=== PATIENT | female | born 1990 | race Caucasian/White ===

== ENCOUNTER 2019-08-06 04:29 | Inpatient (IN) | payer BC ==
[2019-08-06] MEDS ORDERED: Sodium Chloride 0.9% 2.5 ML Syringe FLUSH PRN (05:09)
[2019-08-06] MEDS ORDERED: Butorphanol 1 MG/ML SDV IVPUSH PRN (05:09)
[2019-08-06] MEDS ORDERED: Sodium Chloride 0.9% 10 ML SDV IV PRN (05:09)
[2019-08-06] MEDS ORDERED: Water For Irrigation,Sterile 1,000 ML Container IRR PRN (05:09)
[2019-08-06] MEDS ORDERED: Nalbuphine 10 MG/1 ML Vial IVPUSH PRN (05:09)
[2019-08-06] MEDS ORDERED: Lidocaine 1% 50 ML MDV INJECT PRN (05:09)
[2019-08-06] MEDS ORDERED: Misoprostol 200 MCG Tab PO PRN (05:09)
[2019-08-06] MEDS ORDERED: Sodium Chloride 0.9% 10 ML Syringe FLUSH PRN (05:09)
[2019-08-06] MEDS ORDERED: Tranexamic Acid 1,000 MG in Sodium Chloride 0.9% 100 ML IV PRN (05:09)
[2019-08-06] MEDS ORDERED: Methylergonovine 0.2 MG/1 ML Amp IM PRN (05:09)
[2019-08-06] MEDS ORDERED: Ondansetron 4 MG/2 ML SDV IVPUSH PRN ×2 (05:09→10:26)
[2019-08-06] MEDS ORDERED: Carboprost Tromethamine 250 MCG/1 ML Amp IM PRN (05:09)
[2019-08-06] MEDS ORDERED: Misoprostol 25 MCG (1/4 of 100 MCG) Tab VAG PRN ×2 (05:12)
[2019-08-06] MEDS ORDERED: Terbutaline 1 MG/ML SDV SUBCUT PRN (05:12)
[2019-08-06] MEDS ORDERED: Oxytocin/0.9 % Sodium Chloride 30 UNIT/500 ML BAG IV SCH (05:15)
[2019-08-06] MEDS ORDERED: Lactated Ringers 1,000 ML IV SCH ×2 (05:15→10:30)
[2019-08-06 06:12] LABS: BLOOD UREA NITROGEN,BUN 13 mg/dL (7.0-18.0); CARBON DIOXIDE,CO2 21.2 mmol/L (21.0-32.0); CHLORIDE,CL 103 mmol/L (98-107); GLUCOSE RANDOM 90 mg/dL (74-106); POTASSIUM,K 4.1 mmol/L (3.5-5.1); SODIUM,NA 138 mmol/L (136-145)
[2019-08-06] MEDS ORDERED: fentaNYL 250 MCG/5 ML SDV ONE (08:59)
[2019-08-06] MEDS ORDERED: Propofol 200 MG/20 ML SDV ONE (09:01)
[2019-08-06] MEDS ORDERED: Oxytocin 10 Units/1 ML SDV ONE (09:02)
[2019-08-06] MEDS ORDERED: Phenylephrine/Normal Saline 100 MCG/ML 10 ML Syringe ONE (09:02)
--- NOTE | 2019-08-06 09:06 | PCM.PREANE ---
Preanesthetic Assessment - Anesthesia/Transfusion/Family Hx Anesthesia History: Prior Anesthesia Without Reaction Family History of Anesthesia Reaction: No Transfusion History: No Prior Transfusion(s) Type of Transfusion Reactions: Reports: Unknown - Review of Systems General: No Symptoms Pulmonary: No Symptoms Cardiovascular: No Symptoms Gastrointestinal: No Symptoms Neurological: No Symptoms Other: Reports: None - Physical Assessment NPO Status Date: 08/06/19 NPO Status Time: 06:30 ([facility]) Height: 5 ft 7 in Weight: 92.986 kg ASA Class: 2E Mental Status: Alert & Oriented x3 Airway Class: Mallampati = 2 Dentition: Reports: Normal Dentition Thyro-Mental Finger Breadths: 3 Mouth Opening Finger Breadths: 3 ROM/Head Extension: Full Lungs: Clear to Auscultation, Normal Respiratory Effort Cardiovascular: Regular Rate, Regular Rhythm - Lab Values: Laboratory Last Values WBC 10.11 K/uL (4.0-11.0) 08/06/19 05:43 RBC 4.37 M/uL (4.30-5.90) 08/06/19 05:43 Hgb 12.9 g/dL (12.0-16.0) 08/06/19 05:43 Hct 39.7 % (36.0-46.0) 08/06/19 05:43 MCV 90.8 fL (80.0-98.0) 08/06/19 05:43 MCH 29.5 pg (27.0-32.0) 08/06/19 05:43 MCHC 32.5 g/dL (31.0-37.0) 08/06/19 05:43 RDW Std Deviation 43.4 fl (28.0-62.0) 08/06/19 05:43 RDW Coeff of Jessica 13 % (11.0-15.0) 08/06/19 05:43 Plt Count 201 K/uL (150-400) 08/06/19 05:43 MPV 11.60 fL (7.40-12.00) 08/06/19 05:43 Nucleated RBC % 0.0 /100WBC 08/06/19 05:43 Nucleated RBCs # 0 K/uL 08/06/19 05:43 Sodium 138 mmol/L (136-145) 08/06/19 05:43 Potassium 4.1 mmol/L (3.5-5.1) 08/06/19 05:43 Chloride 103 mmol/L (98-107) 08/06/19 05:43 Carbon Dioxide 21.2 mmol/L (21.0-32.0) 08/06/19 05:43 BUN 13 mg/dL (7.0-18.0) 08/06/19 05:43 Creatinine 0.8 mg/dL (0.6-1.0) 08/06/19 05:43 Est Cr Clr Drug Dosing 103.63 mL/min 08/06/19 05:43 Estimated GFR (MDRD) > 60.0 ml/min 08/06/19 05:43 Glucose 90 mg/dL (74-106) 08/06/19 05:43 Calcium 8.7 mg/dL (8.5-10.1) 08/06/19 05:43 Total Bilirubin 0.2 mg/dL (0.2-1.0) 08/06/19 05:43 AST 24 IU/L (15-37) 08/06/19 05:43 ALT 20 IU/L (14-63) 08/06/19 05:43 Alkaline Phosphatase 134 U/L (46-116) H 08/06/19 05:43 Total Protein 7.0 g/dL (6.4-8.2) 08/06/19 05:43 Albumin 2.4 g/dL (3.4-5.0) L 08/06/19 05:43 Globulin 4.6 g/dL (2.6-4.0) H 08/06/19 05:43 Albumin/Globulin Ratio 0.5 (0.9-1.6) L 08/06/19 05:43 Membrane Rupture POSITIVE 08/06/19 04:45 Blood Type A NEGATIVE 08/06/19 05:43 Antibody Screen NEGATIVE 08/06/19 05:43 - Allergies Allergies/Adverse Reactions: Allergies Allergy/AdvReac Type Severity Reaction Status Date / Time Penicillins Allergy Rash Verified 08/06/19 04:57 - Acknowledgements Anesthesia Type Planned: General Anesthesia Pt an Appropriate Candidate for the Planned Anesthesia: Yes Alternatives and Risks of Anesthesia Discussed w Pt/Guardian: Yes Pt/Guardian Understands and Agrees with Anesthesia Plan: Yes PreAnesthesia Questionnaire HEENT History: Reports: None Cardiovascular History: Reports: None Respiratory History: Reports: None Gastrointestinal History: Reports: GERD Genitourinary History: Reports: None [employer] History: Reports: : 1 (36w6d) Para: 0 LMP (Approximate): (.) Musculoskeletal History: Reports: None Neurological History: Reports: None Psychiatric History: Reports: None Endocrine/Metabolic History: Reports: Obesity/BMI 30+ Hematologic History: Reports: None Immunologic History: Reports: None Oncologic (Cancer) History: Reports: None Dermatologic History: Reports: None - Infectious Disease History Infectious Disease History: Reports: Chicken Pox - Past Surgical History Head Surgeries/Procedures: Reports: None HEENT Surgical History: Reports: Other (See Below) Other HEENT Surgeries/Procedures: Nasal septum surgery. [place] tooth extraction Cardiovascular Surgical History: Reports: None Respiratory Surgical History: Reports: None GI Surgical History: Reports: None Female Surgical History: Reports: None Endocrine Surgical History: Reports: None Neurological Surgical History: Reports: None Musculoskeletal Surgical History: Reports: Other (See Below) Other Musculoskeletal Surgeries/Procedures:: 2 ACL knees surgery Oncologic Surgical History: Reports: None Dermatological Surgical History: Reports: None - SUBSTANCE USE Smoking Status *Q: Never Smoker Second Hand Smoke Exposure: No Recreational Drug Use History: No - HOME MEDS Home Medications: Home Meds PNV #116/Iron Fumarate/FA/DHA [Expecta Combo Pack] 08/06/19 [History] - CURRENT (IN HOUSE) MEDS Current Meds: Current Medications Butorphanol Tartrate (Stadol) 1 mg IVPUSH Q1H PRN PRN Reason: Pain Carboprost Tromethamine (Hemabate Ds) 250 mcg IM ASDIRECTED PRN PRN Reason: Post Hemorrhage Tranexamic Acid 1,000 mg/ (Sodium Chloride) 110 mls @ 660 mls/hr IV ONETIME PRN PRN Reason: Bleeding Lactated Ringer's (Ringers, Lactated) 1,000 mls @ 150 mls/hr IV ASDIRECTED LISA Oxytocin/Sodium Chloride (Oxytocin 30 Unit/500 Ml-Ns) 30 unit in 500 mls @ 999 mls/hr IV TITRATE LISA Lidocaine HCl (Xylocaine 1%) 50 ml INJECT ONETIME PRN PRN Reason: Laceration repair Methylergonovine Maleate (Methergine) 0.2 mg IM ASDIRECTED PRN PRN Reason: Post Hemorrhage Misoprostol (Cytotec) 200 mcg PO ONETIME PRN PRN Reason: Post Hemorrhage Misoprostol (Cytotec) 25 mcg VAG ONETIME PRN PRN Reason: Cervical Ripening Last Admin: 08/06/19 06:57 Dose: 25 mcg Misoprostol (Cytotec) 25 mcg VAG Q4H PRN PRN Reason: Cervical Ripening Nalbuphine HCl (Nubain) 10 mg IVPUSH Q1H PRN PRN Reason: Pain (severe 7-10) Ondansetron HCl (Zofran) 4 mg IVPUSH Q6H PRN PRN Reason: Nausea/Vomiting Sodium Chloride (Saline Flush) 10 ml FLUSH ASDIRECTED PRN PRN Reason: Keep Vein Open Sodium Chloride (Saline Flush) 2.5 ml FLUSH ASDIRECTED PRN PRN Reason: Keep Vein Open Sodium Chloride (Normal Saline) 10 ml IV ASDIRECTED PRN PRN Reason: IV Use Sterile Water (Sterile Water For Irrigation) 1,000 ml IRR ASDIRECTED PRN PRN Reason: delivery Terbutaline Sulfate (Brethine) 0.25 mg SUBCUT ASDIRECTED PRN PRN Reason: Tacysystole Last Admin: 08/06/19 08:44 Dose: 0.25 mg Discontinued Medications Fentanyl (Sublimaze) Confirm Administered Dose 250 mcg .ROUTE .STK-MED ONE Stop: 08/06/19 09:00
[2019-08-06] MEDS ORDERED: fentaNYL 100 MCG/2 ML SDV ONE (09:12)
[2019-08-06] MEDS ORDERED: HYDROmorphone 2 MG/ML Syringe ONE (09:36)
[2019-08-06] MEDS ORDERED: Morphine 2 MG/ML Syringe IVPUSH PRN (09:39)
[2019-08-06] MEDS ORDERED: Acetaminophen/oxyCODONE 325-5 MG Tab PO PRN ×2 (09:39→10:26)
[2019-08-06] MEDS ORDERED: 50% Dextrose in Water 50 ML Syringe IVPUSH PRN (09:46)
[2019-08-06] MEDS ORDERED: fentaNYL 100 MCG/2 ML SDV IVPUSH PRN (09:46)
[2019-08-06] MEDS ORDERED: Albuterol 0.083% 2.5 MG/3 ML Neb Soln NEB PRN (09:46)
[2019-08-06] MEDS ORDERED: EPINEPHrine 1:10,000 1 MG/10 ML Syringe IVPUSH PRN (09:46)
[2019-08-06] MEDS ORDERED: Naloxone 0.4 MG/ML Syringe IVPUSH PRN (09:46)
[2019-08-06] MEDS ORDERED: Atropine 0.1 MG/ML 10 ML Syringe IVPUSH PRN ×2 (09:46)
[2019-08-06] MEDS ORDERED: Bisacodyl 10 MG Supp RECTAL PRN (10:26)
[2019-08-06] MEDS ORDERED: Lanolin 100% Cream 7 GM Tube TOP PRN (10:26)
[2019-08-06] MEDS ORDERED: diphenhydrAMINE 50 MG/ML SDV IVPUSH PRN (10:26)
[2019-08-06] MEDS ORDERED: Morphine 10 MG/ML Syringe IVPUSH PRN (10:31)
--- NOTE | 2019-08-06 10:32 | PCM.POSTAN ---
POST ANESTHESIA ASSESSMENT - MENTAL STATUS Mental Status: Alert, Oriented - VITAL SIGNS Vital Signs: Last Vital Signs Temp 98.6 F 08/06/19 10:07 Pulse 85 08/06/19 10:27 Resp 11 L 08/06/19 10:27 BP 132/74 08/06/19 10:27 Pulse Ox 96 08/06/19 10:27 - RESPIRATORY Respiratory Status: Respiratory Rate WNL, Airway Patent, O2 Saturation Stable - CARDIOVASCULAR CV Status: Pulse Rate WNL, Blood Pressure Stable - GASTROINTESTINAL GI Status: No Symptoms - POST OP HYDRATION Hydration Status: Adequate & Stable
--- NOTE | 2019-08-06 10:33 | CR ---
INDICATION: . Intraoperative comet x-ray. COMPARISON: None. TECHNIQUE: Single portable supine view of the abdomen. FINDINGS: No unexpected radiopaque foreign object. Calcified phleboliths in the pelvis. Nonobstructive bowel gas pattern. Imaged osseous structures are unremarkable. IMPRESSION: No unexpected radiopaque foreign object. Dictated by Arnulfo Rivera MD @ Aug 06 2019 10:31AM Signed by Dr. Arnulfo Rivera @ Aug 06 2019 10:32AM
--- NOTE | 2019-08-06 12:45 | OR ---
SURGEON: Aries Bucio MD DATE OF PROCEDURE: 08/06/2019 INDICATION: The patient is a 28-year-old G1, P0, presenting in spontaneous labor with rupture of membrane at 36 weeks and 6 days. She progressed quickly to fully dilated, baby was found to be in complete breech presentation. heart rate started to have recurrent variable decelerations to the 90s and did not recover with repositioning. At this time, decision was made for primary section due to intolerance to labor and malpresentation. Procedure was discussed with the patient. Risks and complications including bleeding, infection, injury to surrounding organs, and DVT was discussed, she expressed understanding and signed consent. PREOPERATIVE DIAGNOSES: 1. Roth, intrauterine at 36 weeks and 6 days. 2. labor with rupture of membranes. 3. malpresentation. 4. Recurrent variable decelerations. POSTOPERATIVE DIAGNOSES: 1. Roth, intrauterine at 36 weeks 3 days. 2. labor with rupture of membranes. 3. malpresentation. 4. Recurrent variable decelerations. PROCEDURE PERFORMED: Stat low transverse section. PRIMARY SURGEON: Aries Bucio MD. FINDINGS: Roth Intrauterine at 36 weeks and 6 days in complete breech presentation. Female fetus, weight of 5 pounds 5 ounces. score of 9 and 9. EBL 600cc PROCEDURE IN DETAIL: The patient was brought urgently to the operating room. She received clindamycin and gentamicin IV and pneumatic stockings. Diego catheter was placed. Abdomen was prepped with Betadine in sterile fashion and then draped. The patient was placed under general anesthesia. Pfannenstiel incision was made with a scalpel and dissected down to the fascia. The fascia was cleared of subcutaneous tissue and then incised using scalpel and extended bluntly. Karlee clamps were placed on the superior fascial edge. The rectus muscles were from the fascia by blunt dissection and using scalpel. Rectus muscle was in the midline bluntly and an opening was made in the peritoneum bluntly. The peritoneum was then stretched bluntly and bladder was noted to be away from the operative field. The lower uterine segment was incised with scalpel transversely. Clear amniotic fluid was noted. The hips were elevated up to the hysterotomy, turned sacrum anterior, then delivered. Both legs was then delivered. Right shoulder was rotated anteriorly and the right arm delivered by sweeping towards the body. The left shoulder and arm were delivered in similar fashion. Head was then delivered by elevating the legs and flexing the chin. The nose and mouth were suctioned. Baby was pink and crying immediately after delivery, and moving all extremities. Umbilical was clamped and cut. The infant was handed to waiting nursery staff. Cord gases were obtained. The placenta was delivered with gentle traction on the umbilical cord, and the uterus was cleared of any membranes using clean lap. The uterus was exteriorized. Allis clamps were used to grasp angles of the incision. The uterine incision was closed in a single layer in running non-locking fashion using 0 Monocryl. There was a small amount of bleeding on the right corner of the hysterotomy. Two [id number] were placed with 0 Vicryl suture. Hemostasis was confirmed. The uterus was firm and placed back into the peritoneal cavity. The pericolic gutters were cleaned of any clots. The incision was again checked for hemostasis. The edges were found to be slightly oozy and Stacey powder was placed over the entire hysterotomy. The peritoneum was grasped by Randall clamp and closed using 2-0 Vicryl in a running fashion. Rectus muscle was examined and found to be hemostatic. The fascia was closed with 0 Vicryl suture in a running fashion. Subcutaneous tissue was irrigated and bleeding areas were cauterized. The subcutaneous layer was brought together with 2-0 chromic suture in a running fashion. Skin was closed subcuticularly using 4-0 Monocryl on a Sina needle. Telfa and ABD dressing was placed over the incision. She received an abdominal x-ray that confirmed no surgical instruments were retained in the abdomen, since there was no instrument count prior to starting the case. Lap counts were correct. The patient was then awoken from anesthesia in stable condition and transferred to the recovery room. CAPO REBOLLEDO /[id number] RACHNA
[2019-08-06] MEDS: Ketorolac 30 MG/ML SDV IVPUSH SCH ×2 (16:23→22:13)
[2019-08-06] MEDS: Acetaminophen/oxyCODONE 325-5 MG Tab PO PRN (16:23)
[2019-08-06] MEDS: Docusate Sodium 100 MG Cap PO SCH (22:12)
[2019-08-07] MEDS: Ketorolac 30 MG/ML SDV IVPUSH SCH ×2 (04:35→10:42)
[2019-08-07] MEDS: Docusate Sodium 100 MG Cap PO SCH (10:51)
[2019-08-07] MEDS ORDERED: Ibuprofen 800 MG Tab PO PRN (16:30)
[2019-08-07] MEDS: Acetaminophen/oxyCODONE 325-5 MG Tab PO PRN (18:36)
--- NOTE | 2019-08-08 06:38 | PCM.PNPP ---
- General Info Date of Service: 08/07/19 Functional Status: Reports: Pain Controlled, Tolerating Diet, Ambulating, Urinating - Review of Systems General: Reports: No Symptoms HEENT: Reports: No Symptoms Pulmonary: Reports: No Symptoms Cardiovascular: Reports: No Symptoms Gastrointestinal: Reports: No Symptoms Genitourinary: Reports: No Symptoms Musculoskeletal: Reports: No Symptoms Skin: Reports: No Symptoms Neurological: Reports: No Symptoms Psychiatric: Reports: No Symptoms - Patient Data Vital Signs - Most Recent: Last Vital Signs Temp 36.8 C 08/08/19 04:00 Pulse 93 08/08/19 04:00 Resp 17 08/08/19 04:00 BP 129/67 08/08/19 04:00 Pulse Ox 97 08/08/19 04:00 Weight - Most Recent: 92.986 kg I&O - Last 24 Hours: Intake & Output 08/07/19 08/07/19 08/08/19 14:59 22:59 06:59 Output Total 1500 Balance -1500 Med Orders - Current: Current Medications Albuterol (Proventil Neb Soln) 2.5 mg NEB ONETIME PRN PRN Reason: Wheezing Atropine Sulfate (Atropine 0.1 Mg/Ml) 0.5 mg IVPUSH ASDIRECTED PRN PRN Reason: Hypo-perfusion Atropine Sulfate (Atropine 0.1 Mg/Ml) 1 mg IVPUSH ASDIRECTED PRN PRN Reason: Hypo-Perfusion Bisacodyl (Dulcolax) 10 mg RECTAL ONETIME PRN PRN Reason: Constipation Butorphanol Tartrate (Stadol) 1 mg IVPUSH Q1H PRN PRN Reason: Pain Carboprost Tromethamine (Hemabate Ds) 250 mcg IM ASDIRECTED PRN PRN Reason: Post Hemorrhage Dextrose/Water (Dextrose 50% In Water) 50 ml IVPUSH ASDIRECTED PRN PRN Reason: Hypoglycemia Diphenhydramine HCl (Benadryl) 25 mg IVPUSH Q6H PRN PRN Reason: Itching or Nausea Docusate Sodium (Colace) 100 mg PO BID LISA Last Admin: 08/07/19 10:51 Dose: 100 mg Emollient Ointment (Lansinoh Hpa) 0 gm TOP ASDIRECTED PRN PRN Reason: Sore Nipples Epinephrine HCl (Epinephrine 1:10,000) 1 mg IVPUSH ASDIRECTED PRN PRN Reason: ACLS Guidelines Fentanyl (Sublimaze) 50 - 100 mcg IVPUSH Q5M PRN PRN Reason: Pain Tranexamic Acid 1,000 mg/ (Sodium Chloride) 110 mls @ 660 mls/hr IV ONETIME PRN PRN Reason: Bleeding Lactated Ringer's (Ringers, Lactated) 1,000 mls @ 150 mls/hr IV ASDIRECTED [facility] Oxytocin/Sodium Chloride (Oxytocin 30 Unit/500 Ml-Ns) 30 unit in 500 mls @ 999 mls/hr IV TITRATE LISA Lactated Ringer's (Ringers, Lactated) 1,000 mls @ 125 mls/hr IV ASDIRECTED [facility] Ibuprofen (Motrin) 800 mg PO Q8H PRN PRN Reason: mild pain or fever Lidocaine HCl (Xylocaine 1%) 50 ml INJECT ONETIME PRN PRN Reason: Laceration repair Misoprostol (Cytotec) 200 mcg PO ONETIME PRN PRN Reason: Post Hemorrhage Misoprostol (Cytotec) 25 mcg VAG ONETIME PRN PRN Reason: Cervical Ripening Last Admin: 08/06/19 06:57 Dose: 25 mcg Misoprostol (Cytotec) 25 mcg VAG Q4H PRN PRN Reason: Cervical Ripening Nalbuphine HCl (Nubain) 10 mg IVPUSH Q1H PRN PRN Reason: Pain (severe 7-10) Naloxone HCl (Narcan) 0.1 mg IVPUSH ASDIRECTED PRN PRN Reason: Respiratory Depression Ondansetron HCl (Zofran) 4 mg IVPUSH Q6H PRN PRN Reason: Nausea/Vomiting Ondansetron HCl (Zofran) 4 mg IVPUSH Q4H PRN PRN Reason: Nausea/Vomiting Oxycodone/Acetaminophen (Percocet 325-5 Mg) 1 tab PO ONETIME PRN PRN Reason: Pain (moderate 4-6) Last Admin: 08/07/19 00:22 Dose: 1 tab Oxycodone/Acetaminophen (Percocet 325-5 Mg) 1 tab PO Q4H PRN PRN Reason: Pain (moderate 4-6) Last Admin: 08/07/19 18:36 Dose: 1 tab Oxycodone/Acetaminophen (Percocet 325-5 Mg) 2 tab PO Q4H PRN PRN Reason: Pain (moderate 4-6) Sodium Chloride (Saline Flush) 10 ml FLUSH ASDIRECTED PRN PRN Reason: Keep Vein Open Sodium Chloride (Saline Flush) 2.5 ml FLUSH ASDIRECTED PRN PRN Reason: Keep Vein Open Sodium Chloride (Normal Saline) 10 ml IV ASDIRECTED PRN PRN Reason: IV Use Sterile Water (Sterile Water For Irrigation) 1,000 ml IRR ASDIRECTED PRN PRN Reason: delivery Terbutaline Sulfate (Brethine) 0.25 mg SUBCUT ASDIRECTED PRN PRN Reason: Tacysystole Last Admin: 08/06/19 08:44 Dose: 0.25 mg Discontinued Medications Fentanyl (Sublimaze) Confirm Administered Dose 250 mcg .ROUTE .STK-MED ONE Stop: 08/06/19 09:00 Fentanyl (Sublimaze) Confirm Administered Dose 100 mcg .ROUTE .STK-MED ONE Stop: 08/06/19 09:13 Hydromorphone HCl (Dilaudid) Confirm Administered Dose 2 mg .ROUTE .STK-MED ONE Stop: 08/06/19 09:37 Gentamicin Sulfate 80 mg/ (Sodium Chloride) 52 mls @ 100 mls/hr IV ONETIME ONE Stop: 08/06/19 09:42 Ketorolac Tromethamine (Toradol) 30 mg IVPUSH Q6H LISA Stop: 08/07/19 10:31 Last Admin: 08/07/19 10:42 Dose: 30 mg Methylergonovine Maleate (Methergine) 0.2 mg IM ASDIRECTED PRN PRN Reason: Post Hemorrhage Morphine Sulfate (Morphine) 4 mg IVPUSH Q10M PRN PRN Reason: Pain (severe 7-10) Stop: 08/07/19 09:42 Morphine Sulfate (Morphine) 4 mg IVPUSH Q4H PRN PRN Reason: Breakthrough Pain Stop: 08/07/19 10:30 Oxytocin (Pitocin) Confirm Administered Dose 20 unit .ROUTE .STK-MED ONE Stop: 08/06/19 09:03 Phenylephrine HCl (Phenylephrine In Ns 100 Mcg/Ml) Confirm Administered Dose 1 mg .ROUTE .STK-MED ONE Stop: 08/06/19 09:03 Propofol (Diprivan 20 Ml) Confirm Administered Dose 200 mg .ROUTE .STK-MED ONE Stop: 08/06/19 09:02 Succinylcholine Chloride (Succinylcholine Chloride) Confirm Administered Dose 200 mg .ROUTE .STK-MED ONE Stop: 08/06/19 09:03 - Interaction Infant Disposition, : [place] in Room with Family Interaction: Holding Infant Feeding: Attempted ; Nursed Fair/Poor Support Person: - Recovery Exam Fundal Tone: Firm Fundal Level: At Umbilicus Fundal Placement: Midline Lochia Amount: Scant Lochia Color: Rubra/Red Perineum Description: Intact, Minimal Bruising/Swelling Episiotomy/Laceration: None Bladder Status: Voiding Urinary Elimination: Voided - Exam General: Alert, Oriented HEENT: Pupils Equal Neck: Supple Lungs: Clear to Auscultation, Normal Respiratory Effort Cardiovascular: Regular Rate, Regular Rhythm GI/Abdominal Exam: Normal Bowel Sounds, Soft, Non-Tender, No Distention, No Mass Extremities: Normal Inspection, Non-Tender, No Pedal Edema Skin: Warm, Dry, Intact Wound/Incisions: Dressing Dry and Intact Neurological: No New Focal Deficit Psy/Mental Status: Alert, Normal Affect, Normal Mood - Problem List & Annotations (1) Breech presentation, antepartum SNOMED Code(s): 984777547 Code(s): O32.1XX0 - MATERNAL CARE FOR BREECH PRESENTATION, UNSP Status: Acute Current Visit: Yes (2) delivery delivered SNOMED Code(s): 906491831 Code(s): O82 - ENCOUNTER FOR DELIVERY WITHOUT INDICATION Status: Acute Current Visit: Yes - Problem List Review Problem List Initiated/Reviewed/Updated: Yes - Assessment Assessment:: PPD#1 after primary for breech presentation, stable, minimal lochia, pain well controlled, working on , using nipple shield. - Plan Plan:: Continue care, anticipate discharge in am.
--- NOTE | 2019-08-08 06:44 | PCM.PNPP ---
- General Info Date of Service: 08/08/19 Functional Status: Reports: Pain Controlled, Tolerating Diet, Ambulating, Urinating - Review of Systems General: Reports: No Symptoms HEENT: Reports: No Symptoms Pulmonary: Reports: No Symptoms Cardiovascular: Reports: No Symptoms Gastrointestinal: Reports: No Symptoms Genitourinary: Reports: No Symptoms Musculoskeletal: Reports: No Symptoms Skin: Reports: No Symptoms Neurological: Reports: No Symptoms Psychiatric: Reports: No Symptoms - Patient Data Vital Signs - Most Recent: Last Vital Signs Temp 36.8 C 08/08/19 04:00 Pulse 93 08/08/19 04:00 Resp 17 08/08/19 04:00 BP 129/67 08/08/19 04:00 Pulse Ox 97 08/08/19 04:00 Weight - Most Recent: 92.986 kg I&O - Last 24 Hours: Intake & Output 08/07/19 08/07/19 08/08/19 14:59 22:59 06:59 Output Total 1500 Balance -1500 Med Orders - Current: Current Medications Albuterol (Proventil Neb Soln) 2.5 mg NEB ONETIME PRN PRN Reason: Wheezing Atropine Sulfate (Atropine 0.1 Mg/Ml) 0.5 mg IVPUSH ASDIRECTED PRN PRN Reason: Hypo-perfusion Atropine Sulfate (Atropine 0.1 Mg/Ml) 1 mg IVPUSH ASDIRECTED PRN PRN Reason: Hypo-Perfusion Bisacodyl (Dulcolax) 10 mg RECTAL ONETIME PRN PRN Reason: Constipation Butorphanol Tartrate (Stadol) 1 mg IVPUSH Q1H PRN PRN Reason: Pain Carboprost Tromethamine (Hemabate Ds) 250 mcg IM ASDIRECTED PRN PRN Reason: Post Hemorrhage Dextrose/Water (Dextrose 50% In Water) 50 ml IVPUSH ASDIRECTED PRN PRN Reason: Hypoglycemia Diphenhydramine HCl (Benadryl) 25 mg IVPUSH Q6H PRN PRN Reason: Itching or Nausea Docusate Sodium (Colace) 100 mg PO BID LISA Last Admin: 08/07/19 10:51 Dose: 100 mg Emollient Ointment (Lansinoh Hpa) 0 gm TOP ASDIRECTED PRN PRN Reason: Sore Nipples Epinephrine HCl (Epinephrine 1:10,000) 1 mg IVPUSH ASDIRECTED PRN PRN Reason: ACLS Guidelines Fentanyl (Sublimaze) 50 - 100 mcg IVPUSH Q5M PRN PRN Reason: Pain Tranexamic Acid 1,000 mg/ (Sodium Chloride) 110 mls @ 660 mls/hr IV ONETIME PRN PRN Reason: Bleeding Lactated Ringer's (Ringers, Lactated) 1,000 mls @ 150 mls/hr IV ASDIRECTED [facility] Oxytocin/Sodium Chloride (Oxytocin 30 Unit/500 Ml-Ns) 30 unit in 500 mls @ 999 mls/hr IV TITRATE LISA Lactated Ringer's (Ringers, Lactated) 1,000 mls @ 125 mls/hr IV ASDIRECTED [facility] Ibuprofen (Motrin) 800 mg PO Q8H PRN PRN Reason: mild pain or fever Lidocaine HCl (Xylocaine 1%) 50 ml INJECT ONETIME PRN PRN Reason: Laceration repair Misoprostol (Cytotec) 200 mcg PO ONETIME PRN PRN Reason: Post Hemorrhage Misoprostol (Cytotec) 25 mcg VAG ONETIME PRN PRN Reason: Cervical Ripening Last Admin: 08/06/19 06:57 Dose: 25 mcg Misoprostol (Cytotec) 25 mcg VAG Q4H PRN PRN Reason: Cervical Ripening Nalbuphine HCl (Nubain) 10 mg IVPUSH Q1H PRN PRN Reason: Pain (severe 7-10) Naloxone HCl (Narcan) 0.1 mg IVPUSH ASDIRECTED PRN PRN Reason: Respiratory Depression Ondansetron HCl (Zofran) 4 mg IVPUSH Q6H PRN PRN Reason: Nausea/Vomiting Ondansetron HCl (Zofran) 4 mg IVPUSH Q4H PRN PRN Reason: Nausea/Vomiting Oxycodone/Acetaminophen (Percocet 325-5 Mg) 1 tab PO ONETIME PRN PRN Reason: Pain (moderate 4-6) Last Admin: 08/07/19 00:22 Dose: 1 tab Oxycodone/Acetaminophen (Percocet 325-5 Mg) 1 tab PO Q4H PRN PRN Reason: Pain (moderate 4-6) Last Admin: 08/07/19 18:36 Dose: 1 tab Oxycodone/Acetaminophen (Percocet 325-5 Mg) 2 tab PO Q4H PRN PRN Reason: Pain (moderate 4-6) Sodium Chloride (Saline Flush) 10 ml FLUSH ASDIRECTED PRN PRN Reason: Keep Vein Open Sodium Chloride (Saline Flush) 2.5 ml FLUSH ASDIRECTED PRN PRN Reason: Keep Vein Open Sodium Chloride (Normal Saline) 10 ml IV ASDIRECTED PRN PRN Reason: IV Use Sterile Water (Sterile Water For Irrigation) 1,000 ml IRR ASDIRECTED PRN PRN Reason: delivery Terbutaline Sulfate (Brethine) 0.25 mg SUBCUT ASDIRECTED PRN PRN Reason: Tacysystole Last Admin: 08/06/19 08:44 Dose: 0.25 mg Discontinued Medications Fentanyl (Sublimaze) Confirm Administered Dose 250 mcg .ROUTE .STK-MED ONE Stop: 08/06/19 09:00 Fentanyl (Sublimaze) Confirm Administered Dose 100 mcg .ROUTE .STK-MED ONE Stop: 08/06/19 09:13 Hydromorphone HCl (Dilaudid) Confirm Administered Dose 2 mg .ROUTE .STK-MED ONE Stop: 08/06/19 09:37 Gentamicin Sulfate 80 mg/ (Sodium Chloride) 52 mls @ 100 mls/hr IV ONETIME ONE Stop: 08/06/19 09:42 Ketorolac Tromethamine (Toradol) 30 mg IVPUSH Q6H LISA Stop: 08/07/19 10:31 Last Admin: 08/07/19 10:42 Dose: 30 mg Methylergonovine Maleate (Methergine) 0.2 mg IM ASDIRECTED PRN PRN Reason: Post Hemorrhage Morphine Sulfate (Morphine) 4 mg IVPUSH Q10M PRN PRN Reason: Pain (severe 7-10) Stop: 08/07/19 09:42 Morphine Sulfate (Morphine) 4 mg IVPUSH Q4H PRN PRN Reason: Breakthrough Pain Stop: 08/07/19 10:30 Oxytocin (Pitocin) Confirm Administered Dose 20 unit .ROUTE .STK-MED ONE Stop: 08/06/19 09:03 Phenylephrine HCl (Phenylephrine In Ns 100 Mcg/Ml) Confirm Administered Dose 1 mg .ROUTE .STK-MED ONE Stop: 08/06/19 09:03 Propofol (Diprivan 20 Ml) Confirm Administered Dose 200 mg .ROUTE .STK-MED ONE Stop: 08/06/19 09:02 Succinylcholine Chloride (Succinylcholine Chloride) Confirm Administered Dose 200 mg .ROUTE .STK-MED ONE Stop: 08/06/19 09:03 - Interaction Infant Disposition, : [place] in Room with Family Interaction: Holding Infant Feeding: Attempted ; Nursed Fair/Poor, Difficulty with Latch -on Support Person: - Recovery Exam Fundal Tone: Firm Fundal Level: At Umbilicus Fundal Placement: Midline Lochia Amount: Scant Lochia Color: Rubra/Red Perineum Description: Intact, Minimal Bruising/Swelling Episiotomy/Laceration: None Bladder Status: Voiding Urinary Elimination: Voided - Exam General: Alert, Oriented HEENT: Pupils Equal Neck: Supple Lungs: Normal Respiratory Effort GI/Abdominal Exam: Soft, Non-Tender, No Organomegaly, No Distention, No Mass Extremities: Normal Inspection, Non-Tender, No Pedal Edema Skin: Warm, Dry, Intact Wound/Incisions: Healing Well Neurological: No New Focal Deficit Psy/Mental Status: Alert, Normal Affect, Normal Mood - Problem List & Annotations (1) Breech presentation, antepartum SNOMED Code(s): 893224895 Code(s): O32.1XX0 - MATERNAL CARE FOR BREECH PRESENTATION, UNSP Status: Acute Current Visit: Yes (2) delivery delivered SNOMED Code(s): 834903204 Code(s): O82 - ENCOUNTER FOR DELIVERY WITHOUT INDICATION Status: Acute Current Visit: Yes - Problem List Review Problem List Initiated/Reviewed/Updated: Yes - Assessment Assessment:: PPD#2 after primary for breech presentation, stable, minimal lochia, pain well controlled, would like to go home today. - Plan Plan:: Discharge instructions reviewed, may be discharged later today.
[2019-08-08] MEDS: Acetaminophen/oxyCODONE 325-5 MG Tab PO PRN (07:10)
[2019-08-08] MEDS: Docusate Sodium 100 MG Cap PO SCH (09:10)
== END 2019-08-08 14:20 | disposition home or self-care (01) | DRG 540 ==
LOC: MW.OBCHECK 04:29 → MW.OB 04:31 → MW.OBCHECK 05:09 → MW.OB 05:09 → OBSVTOIN 10:26 → MW.OB 11:12
PROVIDERS: ADMIT Obstetrics & Gynecology; ATTEND Obstetrics & Gynecology
PROC: 10D00Z1 Extraction of Products of Conception, Low, Open Approach (ICD-10-PCS; principal; 2019-08-06)
PROC: 3E0P7VZ Introduction of Hormone into Female Reproductive, Via Natural or Artificial Opening (ICD-10-PCS; 2019-08-06)
DX: O32.1XX0 Maternal care for breech presentation, not applicable or unspecified (principal); O76 Abnormality in fetal heart rate and rhythm complicating labor and delivery; O42.013 Preterm premature rupture of membranes, onset of labor within 24 hours of rupture, third trimester; O99.214 Obesity complicating childbirth; E66.9 Obesity, unspecified; Z3A.36 36 weeks gestation of pregnancy; Z37.0 Single live birth
CPT/HCPCS: 01961; 36415; 51702; 59025; 74018; 74018-26; 80053; 84112; 85014; 85018; 85027; 85460; 86850; 86900; 86901; 88307; A9270-GY; J0330; J1170; J1885; J2370; J2590; J2704; J2792; J3010; J3105